=== PATIENT | female | born 1995 | race Caucasian/White ===

== ENCOUNTER 2018-01-06 09:15 | Emergency (ER) | payer SELFPAY ==
[~2018-01-06] VITALS: Ht 167.6 cm; Wt 56.5 kg
[~2018-01-06 09:15] MED LIST: BENZ100 PO; DICL75 PO; MELA5TAB10 PO; ZITH250T PO
[2018-01-06 09:26] VITALS: BP 131/70; PULSE 84; RESP 16; TEMP 99.1
--- NOTE | 2018-01-06 10:03 | PD ---
HPI Chief Complaint: Anxiety Time Seen by Provider: 09:52 Travel History International Travel<30 days: No Contact w/Intl Traveler<30days: No Traveled to known affect area: No History of Present Illness HPI This 22-year-old female is complaining of severe anxiety. She says that on January 04 she was stopped by the police in [place]. She was tasered twice. Once on the left flank area and once in the left thigh. She says that she had paralysis of the left side which was quite transient and has resolved. Since that episode however she has been extremely anxious and stressed. She is not sleeping well and has been extremely distraught. She has no psych history. She is on no medications. She denies any thoughts of hurting herself [facility] Past Medical History Medical History: Denies Significant Hx Diminished Hearing: No Immunizations Current: No (UNKNOWN) Tetanus Vaccination: < 5 Years Influenza Vaccination: No ?: Unknown LMP: 12/21/17 : 1 Para: 0 Miscarriage: 1 Past Surgical History Surgical History: No Previous Surgery Social History Alcohol Use: No Tobacco Use: No Substance Use: No (Denies ) Allergies-Medications (Allergen,Severity, Reaction): Coded Allergies: No Known Allergies (Verified Adverse Reaction, Unknown, 01/06/18) Reported Meds & Prescriptions Reported Meds & Active Scripts Active No Active Prescriptions or Reported Medications Review of Systems General / Constitutional: No: Fever, Chills Eyes: No: Blurred Vision HENT: No: Headaches, Vertigo Cardiovascular: No: Chest Pain or Discomfort, Palpitations Respiratory: No: Cough, Shortness of Breath Gastrointestinal: No: Vomiting, Diarrhea Genitourinary: No: Urgency, Frequency Musculoskeletal: No: Myalgias Skin: No Rash Psychiatric: Positive: Anxiety, No: Suicidal Ideations, Disorder of Thought, Mood Disorder, Substance Abuse Hematologic/Lymphatic: No: Easy Bruising Physical Exam Narrative GENERAL: Well-developed female SKIN: Focused skin assessment warm/dry. There are villeda from the taser on the left chest area and the left thigh HEAD: Atraumatic. Normocephalic. EYES: Pupils equal and round. No scleral icterus. No injection or drainage. ENT: No nasal bleeding or discharge. Mucous membranes pink and moist. NECK: Trachea midline. No JVD. CARDIOVASCULAR: Regular rate and rhythm. No murmur appreciated. RESPIRATORY: No accessory muscle use. Clear to auscultation. Breath sounds equal bilaterally. GASTROINTESTINAL: Abdomen soft, non-tender, nondistended. Hepatic and splenic margins not palpable. MUSCULOSKELETAL: No obvious deformities. No clubbing. No cyanosis. No edema. NEUROLOGICAL: Awake and alert. No obvious cranial nerve deficits. Motor grossly within normal limits. Normal speech. PSYCHIATRIC: Appropriate mood and affect; insight and judgment normal. SHe does appear quite anxious Data Data Last Documented VS Vital Signs Date Time Temp Pulse Resp B/P (MAP) Pulse Ox O2 Delivery O2 Flow Rate FiO2 01/06/18 09:26 99.1 84 16 131/70 (90) Orders Orders Ed Urine Pregnancytest Poc (01/06/18 09:59) MDM Medical Decision Making Medical Screen Exam Complete: Yes Emergency Medical Condition: Yes Medical Record Reviewed: Yes Differential Diagnosis Differential includes anxiety, anxiety secondary to recent stressful event Narrative Course Patient is uncomfortable with anxiety and I will prescribe Ativan 10 tablets. Diagnosis Primary Impression: Anxiety Scripts Lorazepam (Ativan) 1 Mg Tab 1 MG PO Q6H Y for ANXIETY AND/OR AGITATION, #10 TAB 0 Refills Prov: Boo Ibrahim MD 01/06/18 Disposition: 01 DISCHARGE HOME Condition: Stable Boo Ibrahim MD January 06, 2018 10:02
[2018-01-06] MEDS ORDERED: LORA-474 PO (10:11)
== END 2018-01-06 10:50 | disposition home or self-care (01) ==
LOC: PHED 09:15
DX: F41.9 Anxiety disorder, unspecified (principal)
CPT/HCPCS: 84703; 99283

== ENCOUNTER 2018-01-24 10:01 | Emergency (ER) | payer MEDICAID, OTHER ==
[~2018-01-24] VITALS: Ht 167.6 cm; Wt 57.1 kg
[~2018-01-24 10:01] MED LIST changes: -BENZ100 PO; -DICL75 PO; +LORA-474 PO; -MELA5TAB10 PO; -ZITH250T PO
[2018-01-24 10:09] VITALS: BP 129/71; PULSE 88; RESP 16; TEMP 99.1; O2SAT 100
[2018-01-24 10:39] LABS: BILIRUBIN, URINE NEG (NEG); BLOOD, URINE NEG (NEG); GLUCOSE,URINE NEG (NEG); KETONE, URINE NEG (NEG); NITRITE,URINE NEG (NEG); PH, URINE 5.5 (5.0-8.5); URINE COLOR YELLOW (YELLW/STRAW); URINE LEUKOCYTE ESTERASE NEG (NEG)
[2018-01-24 10:45] LABS: WBC, URINE 0-2 /hpf (0-5)
[2018-01-24 10:46] LABS: BACTERIA, URINE OCC /hpf; RBC, URINE 0-3 /hpf (0-3)
[2018-01-24] MEDS ORDERED: SODIUM CHLOR 0.9% 1000 ML INJ 1,000 ML IV ONE (10:46)
[2018-01-24] MEDS ORDERED: SODIUM CHLORIDE 0.9% FLUSH 10 ML FLUSH IVF PRN (11:00)
--- NOTE | 2018-01-24 11:07 | PD ---
HPI Chief Complaint: Related Problem Time Seen by Provider: 10:36 Travel History International Travel<30 days: No Contact w/Intl Traveler<30days: No Traveled to known affect area: No History of Present Illness HPI Patient is a 22-year-old female who presents the emergency room for evaluation of possible miscarriage. Patient is 6 weeks by date. Patient reports that she has noticed some vaginal spotting since last night, reports that she has been having crampy bilateral lower abdominal pain with her symptoms. Denies any pelvic trauma. Patient reports that she has had one prior miscarriage at 8-9 weeks, patient reports concern for possible miscarriage. Patient reports that she has not follow-up with her ECONOMIC ANALYST although she does have an appointment with Dr. Muna rodriguez. Patient reports that she notices vaginal spotting last night, reports that she had an episode where she felt that her body was on fire, reports that she felt as if she was going to pass out. Reported no nausea or vomiting with the symptoms. At this time, patient denies any vaginal discharge. Reports that her vaginal bleeding is pink tinged in nature, denies any passage of blood. Reports no previous full-term pregnancies in the past. Patient denies any fever or chills, patient with no other complaints at this time. PFSH Past Medical History Diminished Hearing: No Immunizations Current: No (UNKNOWN) ?: LMP: 12/19/17 : 1 Para: 0 Miscarriage: 1 Social History Alcohol Use: No Tobacco Use: No Substance Use: No (Denies ) Allergies-Medications (Allergen,Severity, Reaction): Coded Allergies: No Known Allergies (Verified Adverse Reaction, Unknown, 01/24/18) Reported Meds & Prescriptions Reported Meds & Active Scripts Active Review of Systems General / Constitutional: No: Fever Eyes: No: Visual changes HENT: No: Headaches Cardiovascular: No: Chest Pain or Discomfort Respiratory: No: Shortness of Breath Gastrointestinal: No: Abdominal Pain Genitourinary: Positive: Vaginal Bleeding, No: Urgency, Frequency, Dysuria Musculoskeletal: No: Pain Skin: No Rash Neurologic: No: Weakness Psychiatric: No: Depression Endocrine: No: Polydipsia Hematologic/Lymphatic: No: Easy Bruising Physical Exam Narrative GENERAL: No acute distress, nontoxic, well-appearing SKIN: Focused skin assessment warm/dry. HEAD: Atraumatic. Normocephalic. EYES: Pupils equal and round. No scleral icterus. No injection or drainage. ENT: No nasal bleeding or discharge. Mucous membranes pink and moist. NECK: Trachea midline. No JVD. CARDIOVASCULAR: Regular rate and rhythm. No murmur appreciated. RESPIRATORY: No accessory muscle use. Clear to auscultation. Breath sounds equal bilaterally. GASTROINTESTINAL: Abdomen soft, non-tender, nondistended. Hepatic and splenic margins not palpable. MUSCULOSKELETAL: No obvious deformities. No clubbing. No cyanosis. No edema. NEUROLOGICAL: Awake and alert. No obvious cranial nerve deficits. Motor grossly within normal limits. Normal speech. PSYCHIATRIC: Appropriate mood and affect; insight and judgment normal. Data Data Last Documented VS Vital Signs Date Time Temp Pulse Resp B/P (MAP) Pulse Ox O2 Delivery O2 Flow Rate FiO2 01/24/18 14:01 77 16 107/62 (77) 98 Room Air 01/24/18 10:09 99.1 Orders Orders Urinalysis - C+S If Indicated (01/24/18 10:24) Ed Urine Pregnancytest Poc (01/24/18 10:24) Beta Hcg (Quant/Titer) (01/24/18 10:46) Complete Blood Count With Diff (01/24/18 10:46) Comprehensive Metabolic Panel (01/24/18 10:46) Complete Rh (01/24/18 10:46) Type And Screen (01/24/18 10:46) Iv Access Insert/Monitor (01/24/18 10:46) Ecg Monitoring (01/24/18 10:46) Sodium Chloride 0.9% Flush (Ns Flush) (01/24/18 11:00) Sodium Chlor 0.9% 1000 Ml Inj (Ns 1000 M (01/24/18 10:46) Us Pelvis (Ques Pr/Ect)W Trans (01/24/18 ) Labs Laboratory Tests Test 01/24/18 10:30 01/24/18 11:00 Urine Collection Type CLEAN CATCH Urine Color YELLOW Urine Turbidity CLEAR Urine pH 5.5 Urine Specific Joes 1.025 Urine Protein NEG mg/dL Urine Glucose (UA) NEG mg/dL Urine Ketones NEG mg/dL Urine Occult Blood NEG Urine Nitrite NEG Urine Bilirubin NEG Urine Urobilinogen 0.2 MG/DL Urine Leukocyte Esterase NEG Urine RBC 0-3 /hpf Urine WBC 0-2 /hpf Urine Squamous Epithelial Cells 6-8 /hpf Urine Bacteria OCC /hpf Microscopic Urinalysis Comment CULT NOT INDICATED Urine Collection Time 10:30 White Blood Count 7.7 TH/MM3 Red Blood Count 3.77 MIL/MM3 Hemoglobin 12.6 GM/DL Hematocrit 36.7 % Mean Corpuscular Volume 97.4 FL Mean Corpuscular Hemoglobin 33.5 PG Mean Corpuscular Hemoglobin Concent 34.4 % Red Cell Distribution Width 11.4 % Platelet Count 218 TH/MM3 Mean Platelet Volume 9.2 FL Neutrophils (%) (Auto) 79.6 % Lymphocytes (%) (Auto) 13.1 % Monocytes (%) (Auto) 5.6 % Eosinophils (%) (Auto) 1.1 % Basophils (%) (Auto) 0.6 % Neutrophils # (Auto) 6.2 TH/MM3 Lymphocytes # (Auto) 1.0 TH/MM3 Monocytes # (Auto) 0.4 TH/MM3 Eosinophils # (Auto) 0.1 TH/MM3 Basophils # (Auto) 0.0 TH/MM3 CBC Comment DIFF FINAL Differential Comment Blood Urea Nitrogen 11 MG/DL Creatinine 0.61 MG/DL Random Glucose 85 MG/DL Total Protein 7.9 GM/DL Albumin 4.0 GM/DL Calcium Level 8.8 MG/DL Alkaline Phosphatase 49 U/L Aspartate Amino Transf (AST/SGOT) 14 U/L Alanine Aminotransferase (ALT/SGPT) 19 U/L Total Bilirubin 0.4 MG/DL Sodium Level 137 MEQ/L Potassium Level 3.6 MEQ/L Chloride Level 105 MEQ/L Carbon Dioxide Level 24.8 MEQ/L Anion Gap 7 MEQ/L Estimat Glomerular Filtration Rate 121 ML/MIN Human Chorionic Gonadotropin, Quant 6150 MIU/ML [facility] Medical Decision Making Medical Screen Exam Complete: Yes Emergency Medical Condition: Yes Medical Record Reviewed: Yes Interpretation(s) Vital Signs Date Time Temp Pulse Resp B/P (MAP) Pulse Ox O2 Delivery O2 Flow Rate FiO2 01/24/18 10:09 99.1 88 16 129/71 (90) 100 Differential Diagnosis Miscarriage, ectopic , early Narrative Course 22-year-old female who is nontoxic in evaluation, presents the emergency room for evaluation of possible miscarriage. Patient is 6 weeks , reports that she noted some pink tinged spotting since last night. Patient reports bilateral pains/tightness to her lower abdomen. Reports history of miscarriage at the weeks in the past, patient concerned that she may be miscarrying at this time. During the course of the patients emergency department visit, the patients history, examination, and differential diagnosis were reviewed with the patient. The patient was placed on a surveillance system monitor with oximetry and frequent blood pressure monitoring. The patient had an IV access obtained and blood work sent for analysis. The patient was initially provided IV fluids. The patients laboratory studies were reviewed and remarkable for Laboratory Tests Test 01/24/18 10:30 01/24/18 11:00 Urine Collection Type CLEAN CATCH Urine Color YELLOW (YELLW/STRAW) Urine Turbidity CLEAR (CLEAR) Urine pH 5.5 (5.0-8.5) Urine Specific Joes 1.025 (1.002-1.035) Urine Protein NEG mg/dL (NEG-TRACE) Urine Glucose (UA) NEG mg/dL (NEG) Urine Ketones NEG mg/dL (NEG) Urine Occult Blood NEG (NEG) Urine Nitrite NEG (NEG) Urine Bilirubin NEG (NEG) Urine Urobilinogen 0.2 MG/DL (LESS THAN Urine Leukocyte Esterase NEG (NEG) Urine RBC 0-3 /hpf (0-3) Urine WBC 0-2 /hpf (0-5) Urine Squamous Epithelial Cells 6-8 /hpf (0-5) Urine Bacteria OCC /hpf (NONE) Microscopic Urinalysis Comment CULT NOT INDICATED Urine Collection Time 10:30 White Blood Count 7.7 TH/MM3 (4.0-11.0) Red Blood Count 3.77 MIL/MM3 (4.00-5.30) Hemoglobin 12.6 GM/DL (11.6-15.3) Hematocrit 36.7 % (35.0-46.0) Mean Corpuscular Volume 97.4 FL (80.0-100.0) Mean Corpuscular Hemoglobin 33.5 PG (27.0-34.0) Mean Corpuscular Hemoglobin Concent 34.4 % (32.0-36.0) Red Cell Distribution Width 11.4 % (11.6-17.2) Platelet Count 218 TH/MM3 (150-450) Mean Platelet Volume 9.2 FL (7.0-11.0) Neutrophils (%) (Auto) 79.6 % (16.0-70.0) Lymphocytes (%) (Auto) 13.1 % (9.0-44.0) Monocytes (%) (Auto) 5.6 % (0.0-8.0) Eosinophils (%) (Auto) 1.1 % (0.0-4.0) Basophils (%) (Auto) 0.6 % (0.0-2.0) Neutrophils # (Auto) 6.2 TH/MM3 (1.8-7.7) Lymphocytes # (Auto) 1.0 TH/MM3 (1.0-4.8) Monocytes # (Auto) 0.4 TH/MM3 (0-0.9) Eosinophils # (Auto) 0.1 TH/MM3 (0-0.4) Basophils # (Auto) 0.0 TH/MM3 (0-0.2) CBC Comment DIFF FINAL Differential Comment Blood Urea Nitrogen 11 MG/DL (7-18) Creatinine 0.61 MG/DL (0.50-1.00) Random Glucose 85 MG/DL (74-106) Total Protein 7.9 GM/DL (6.4-8.2) Albumin 4.0 GM/DL (3.4-5.0) Calcium Level 8.8 MG/DL (8.5-10.1) Alkaline Phosphatase 49 U/L (45-117) Aspartate Amino Transf (AST/SGOT) 14 U/L (15-37) Alanine Aminotransferase (ALT/SGPT) 19 U/L (10-53) Total Bilirubin 0.4 MG/DL (0.2-1.0) Sodium Level 137 MEQ/L (136-145) Potassium Level 3.6 MEQ/L (3.5-5.1) Chloride Level 105 MEQ/L (98-107) Carbon Dioxide Level 24.8 MEQ/L (21.0-32.0) Anion Gap 7 MEQ/L (5-15) Estimat Glomerular Filtration Rate 121 ML/MIN (>89) Human Chorionic Gonadotropin, Quant 6150 MIU/ML (0-5) Radiology studies were reviewed and remarkable for Last Impressions Pelvis Ultrasound 01/24/18 0000 Signed Impressions: CONCLUSION: 1. Imaging findings indicate early intrauterine with gestational sac containing an embryo identified. Estimated gestational age based on gestationa l sac size is 5 weeks and 0 days. 2. No other concerning abnormality is identified. Labs reviewed, patient with a hCG quant of 6150, patient's blood type is A+, she does not require rhogam Pelvic ultrasound does show an early IUP which is about 5 weeks and 0 days. Discussed with patient concerns for possible miscarriage given her bleeding/ spotting. Patient understands need for pelvic rest. She will follow-up with her ECONOMIC ANALYST as soon as possible. Signs and symptoms of when to return to the ER was reviewed with her in detail. Diagnosis Primary Impression: Threatened miscarriage in early Patient Instructions: General Instructions Additional Instructions: Please provide patient with a copy of their lab work and studies at discharge* * Please follow up with your primary care doctor in 2-3 days Return to the ER if symptoms worsen or progress Return to the ER as needed Please follow-up with your ECONOMIC ANALYST as soon as possible Pelvic rest until you are seen and cleared by your ECONOMIC ANALYST Disposition: 01 DISCHARGE HOME Condition: Stable Mireya Funk DO January 24, 2018 11:07
[2018-01-24 11:17] LABS: AUTOMATED NEUTROPHIL # 6.2 TH/MM3 (1.8-7.7); BASOPHIL % 0.6 % (0.0-2.0); EOSINOPHIL # 0.1 TH/MM3 (0-0.4); EOSINOPHIL % 1.1 % (0.0-4.0); HEMATOCRIT 36.7 % (35.0-46.0); HEMOGLOBIN 12.6 GM/DL (11.6-15.3); LYMPH % 13.1 % (9.0-44.0); MEAN CELL VOLUME 97.4 FL (80.0-100.0); MEAN CORPUSCULAR HEMOGLOBIN 33.5 PG (27.0-34.0); MEAN CORPUSCULAR HGB CONC 34.4 % (32.0-36.0); MEAN PLATELET VOLUME 9.2 FL (7.0-11.0); MONO % 5.6 % (0.0-8.0); MONOCYTE # 0.4 TH/MM3 (0-0.9); NEUT % 79.6 % (16.0-70.0); PLATELET COUNT 218 TH/MM3 (150-450); RED BLOOD COUNT 3.77 MIL/MM3 (4.00-5.30); RED CELL DISTRIBUTION WIDTH 11.4 % (11.6-17.2); WHITE BLOOD COUNT 7.7 TH/MM3 (4.0-11.0)
[2018-01-24 11:18] LABS: CHLORIDE 105 MEQ/L (98-107); SODIUM (NA) 137 MEQ/L (136-145)
[2018-01-24 11:21] LABS: CALCIUM 8.8 MG/DL (8.5-10.1)
[2018-01-24 11:22] LABS: BICARBONATE 24.8 MEQ/L (21.0-32.0); BLOOD UREA NITROGEN 11 MG/DL (7-18); GLUCOSE,RANDOM 85 MG/DL (74-106)
[2018-01-24 11:25] LABS: ALT (GPT) 19 U/L (10-53); AST (GOT) 14 U/L (15-37); CREATININE 0.61 MG/DL (0.50-1.00); GLOMERULAR FILTRATION RATE 121 ML/MIN (>89)
[2018-01-24 11:27] LABS: TOTAL BILIRUBIN ADULT 0.4 MG/DL (0.2-1.0); TOTAL PROTEIN 7.9 GM/DL (6.4-8.2)
[2018-01-24 11:28] LABS: ALKALINE PHOSPHATASE 49 U/L (45-117)
[2018-01-24 14:01] VITALS: BP 107/62; PULSE 77; RESP 16; O2SAT 98
--- NOTE | 2018-01-24 14:06 | RADRPT ---
EXAM DATE: 01/24/2018 12:07 PM EDT AGE/SEX: 22 years / Female INDICATIONS: Pelvic pain. CLINICAL DATA: This is the patient's initial encounter. Patient reports that signs and symptoms have been present for 3 days and indicates a pain score of 2/10. MEDICAL/SURGICAL HISTORY: . Vaginal bleeding with . Miscarriage. None. COMPARISON: No prior [facility] exams available for comparison. MEASUREMENTS: Uterus:__8.6 x 6.2 x 5.4 cm Endometrial Stripe:__13 mm Right Ovary:__ 3.2 x 2.0 x 2.0 cm Left Ovary:__ 4.0 x 2.9 x 2.2 cm FINDINGS: Uterus: The myometrium has homogeneous echotexture without mass. There is a gestational sac high in the endometrial cavity. It measures 1.2 x 0.9 x 1.0 cm and contains a yolk sac. No embryo is identif ied. Right Ovary: The right ovary contains follicles. No concerning cystic lesion or solid mass is identi fied. Left Ovary: Left ovary contains a hypoechoic area measuring 2.5 cm and also contains small follicles . No concerning lesion is seen. Other: No free fluid. CONCLUSION: 1. Imaging findings indicate early intrauterine with gestational sac containing an embryo identified. Estimated gestational age based on gestational sac size is 5 weeks and 0 days. 2. No other concerning abnormality is identified. Electronically signed by: Shivam Gaines MD 01/24/2018 2:04 PM EDT
== END 2018-01-24 14:42 | disposition home or self-care (01) ==
LOC: PHED 10:01
DX: O20.0 Threatened abortion (principal); Z3A.01 Less than 8 weeks gestation of pregnancy
CPT/HCPCS: 76700; 76817; 80053; 81001; 84702; 84703; 85025; 86850; 86900; 86901; 96360; 96361; 99284; J7030